=== PATIENT | female | born 2005 | race Two or more races ===

== ENCOUNTER 2025-04-28 07:44 | Outpatient (CLI) | payer OTHER | END 2025-04-28 07:51 | disposition home or self-care (01) | LOC: PRENATAL 07:44 | PROVIDERS: ATTEND Obstetrics & Gynecology Maternal & Fetal Medicine | DX: O44.03 Complete placenta previa NOS or without hemorrhage, third trimester (principal); O36.8130 Decreased fetal movements, third trimester, not applicable or unspecified; Z3A.28 28 weeks gestation of pregnancy ==